=== PATIENT | male | born 1950 | race Caucasian/White ===

== ENCOUNTER → 2022-03-12 10:02 | Outpatient (CLI) | payer MEDICARE, SELFPAY ==
[2022-03-12 11:45] LABS: Add Manual Diff / Slide Review NO; Basophils Absolute Auto 0 /uL (0-100); Basophils Percent Auto 0.6 % (0-2); Eosinophils Absolute Auto 100 /uL (0-450); Eosinophils Percent Auto 2.4 % (2-4); Hematocrit 42.8 % (41-53); Hemoglobin 14.7 g/dL (13.5-17.5); Lymphocytes Absolute Auto 1500 /uL (1100-4500); Lymphocytes Percent Auto 32.9 % (25-40); Mean Corpuscular HGB Conc 34.4 % (30-36); Mean Corpuscular Hemoglobin 34.8 PG (26-34); Mean Corpuscular Volume 101.3 fL (80-100); Monocytes Absolute Auto 800 /uL (0-900); Monocytes Percent Auto 17.5 % (3-14); Neutrophils Absolute Auto 2100 /uL (1500-7000); Neutrophils Percent Auto 46.6 % (50-75); Platelet Count 168 X10^3/uL (150-400); Red Blood Cell Count 4.23 X10^6/uL (4.5-5.9); Red Cell Distribution Width 12.7 % (11.6-14.8); White Blood Cell Count 4.6 X10^3/uL (4.5-11.0)
[2022-03-12 12:07] LABS: Alanine Aminotransferase 21 IU/L (<50); Albumin 4.1 g/dL (3.5-5.0); Albumin Globulin Ratio 0.9 (1.0-2.8); Alkaline Phosphatase 37 U/L (38-126); Aspartate Aminotransferase 30 IU/L (17-59); BUN Creatinine Ratio 17.3 (6-22); Bilirubin Total 0.6 mg/dL (0.2-1.3); Blood Urea Nitrogen 17 mg/dL (9-20); Calcium 8.9 mg/dL (8.4-10.2); Carbon Dioxide 30 mmol/L (22-32); Chloride 104 mmol/L (98-107); Cholesterol 135 mg/dL (140-199); Estimated Glomerular Filt Rate > 60 mL/min (>60); Globulin 4.8 g/dL (1.7-4.1); Glucose 105 mg/dL (80-110); HDL Cholesterol 28 mg/dL (40-60); HEMOLYSIS < 15 (0-50); LDL Cholesterol Calculated 92 mg/dL (<100); Potassium 4.3 mmol/L (3.4-5.1); Sodium 141 mmol/L (137-145); Total Protein 8.9 g/dL (6.3-8.2); Triglycerides 74 mg/dL (35-150)
[2022-03-12 12:28] LABS: Prostate Specific Antigen Scrn 0.592 ng/mL (0.1-4.0)
== END ==
PROVIDERS: PCP Family Medicine; Referring Provider Family Medicine; Visit Provider Family Medicine
DX: E78.5 Hyperlipidemia, unspecified (principal); Z12.5 Encounter for screening for malignant neoplasm of prostate; R35.1 Nocturia
CPT/HCPCS: 36415; 80053; 80061; 85025; G0103

== ENCOUNTER 2022-10-09 18:57 | Emergency (ER) | payer OTHER, SELFPAY ==
[2022-10-09 19:05] VITALS: BP 117/61; PULSE 63; RESP 18; TEMP 36.6; O2SAT 97; BMI 21.9
--- NOTE | 2022-10-09 19:09 | DI.RAD.S_ITS ---
PROCEDURE: XR CHEST 1V INDICATIONS: Shortness of breath TECHNIQUE: One view of the chest was acquired. COMPARISON: None. FINDINGS: Surgical changes and devices: None. Lungs and pleura: Lungs are clear. No pleural effusions or pneumothorax. Mediastinum: Mediastinal contours appear normal. Heart size is normal. Bones and chest wall: No suspicious bony lesions. Overlying soft tissues appear unremarkable. IMPRESSION: No acute cardiopulmonary abnormality. Dictated by: Jaden Escalante M.D. on 10/09/2022 at 20:55 Approved by: Jaden Escalante M.D. on 10/09/2022 at 20:56
[2022-10-09 19:26] LABS: Add Manual Diff / Slide Review NO; Basophils Absolute Auto 0 /uL (0-100); Basophils Percent Auto 0.4 % (0-2); Eosinophils Absolute Auto 100 /uL (0-450); Eosinophils Percent Auto 1.4 % (2-4); Hematocrit 40.8 % (41-53); Hemoglobin 14.1 g/dL (13.5-17.5); Lymphocytes Absolute Auto 2000 /uL (1100-4500); Lymphocytes Percent Auto 32.9 % (25-40); Mean Corpuscular HGB Conc 34.6 % (30-36); Mean Corpuscular Hemoglobin 35.1 PG (26-34); Mean Corpuscular Volume 101.3 fL (80-100); Monocytes Absolute Auto 900 /uL (0-900); Monocytes Percent Auto 14.5 % (3-14); Neutrophils Absolute Auto 3100 /uL (1500-7000); Neutrophils Percent Auto 50.8 % (50-75); Platelet Count 171 X10^3/uL (150-400); Red Blood Cell Count 4.03 X10^6/uL (4.5-5.9); Red Cell Distribution Width 12.7 % (11.6-14.8)
[2022-10-09 19:36] LABS: INR 1.1 (0.9-1.3); Prothrombin Time 12.4 SECONDS (10.1-12.7)
[2022-10-09 19:42] LABS: Alanine Aminotransferase 31 IU/L (<50); Albumin Globulin Ratio 0.8 (1.0-2.8); Alkaline Phosphatase 40 U/L (38-126); Aspartate Aminotransferase 27 IU/L (17-59); Bilirubin Total 0.6 mg/dL (0.2-1.3); Blood Urea Nitrogen 18 mg/dL (9-20); Calcium 9.3 mg/dL (8.4-10.2); Carbon Dioxide 27 mmol/L (22-32); Chloride 107 mmol/L (98-107); Estimated Glomerular Filt Rate > 60 mL/min (>60); Globulin 5.1 g/dL (1.7-4.1); Glucose 109 mg/dL (80-110); HEMOLYSIS < 15 (0-50); Potassium 4.3 mmol/L (3.4-5.1); Sodium 143 mmol/L (137-145); Total Protein 9.1 g/dL (6.3-8.2)
[2022-10-09 19:57] LABS: NT-proBNP (BNP-Adult 18+) 228 pg/mL (<125); Troponin I < 0.012 ng/mL (0.01-0.034)
[2022-10-09 20:03] LABS: COVID-19 CEPHEID 4-PLEX PCR Negative (Negative); Influenza A - CEPHEID Flu A NEGATIVE (NEGATIVE); Influenza B - CEPHEID Flu B NEGATIVE (NEGATIVE); Respiratory Syncytial Virus Negative (Negative)
--- NOTE | 2022-10-09 20:07 | ED_ITS ---
HPI - Chest Pain General Chief Complaint: Chest Pain Stated Complaint: sob, chest pain Time Seen by Provider: 10/09/22 20:04 Source: patient Mode of arrival: Ambulatory Limitations: no limitations History of Present Illness HPI narrative: 72-year-old male nonsmoker with history of PTSD, insomnia, chronic cough and reported prior diagnosis of emphysema presents with a chief complaint of a few weeks of increasing cough and pleuritic-type chest pain. He denies much in the way of runny nose or nasal congestion, he has no sore throat. His cough is dry and hacking and seems to be worsened with deep breath. He denies any exertional dyspnea or orthopnea. He has no lower extremity swelling, redness or pain. He denies any recent trauma, travel or history of blood clot. He has no history of cancer. He denies any sputum production. He is had no fever, chills nor nausea or vomiting. He denies any exercise intolerance. He reports a chest pain that is sharp and stabbing and only with deep breath, cough and with range of motion of his left upper extremity. Related Data Previous Rx's Medication Instructions Recorded trazodone 50 mg tablet 50 mg PO DAILY #90 tabs 02/22/22 paroxetine HCl 10 mg tablet 10 mg PO DAILY #90 tabs 10/08/22 Allergies Allergy/AdvReac Type Severity Reaction Status Date / Time No Known Drug Allergies Allergy Verified 10/09/22 19:05 Review of Systems Review of Systems Narrative: GENERAL: Denies chills, fatigue, malaise, fever, sweats. HEENT: Denies sinus pain, ear pain, sore throat, difficulty swallowing, dizziness. RESPIRATORY: See HPI CARDIOVASCULAR: Denies chest pain, palpitations, orthopnea, edema, GASTROINTESTINAL: Denies nausea, vomiting, abdominal pain, diarrhea, c onstipation, melena. : Denies dysuria, frequency, incontinence, hematuria, urinary retention. MUSCULOSKELETAL: denies weakness, joint pain, or bony pain SKIN: Denies rash, skin lesions, or other NEUROLOGIC: Denies weakness, headache, numbness, change in speech, confusion, seizures, incoordination. PSYCHIATRIC: No concerning psychosocial issues. 12 point review of systems is negative except for those stated above Patient History Medical History Anxiety Cataracts, bilateral Chronic back pain Chronic cough Depression GERD (gastroesophageal reflux disease) Hearing loss History of hyperlipidemia Insomnia Irritable bowel syndrome Left inguinal hernia Low HDL (under 40) Measles Migraines Mumps Nocturia Pelvic somatic dysfunction PTSD (post-traumatic stress disorder) Sacral region somatic dysfunction Shoulder pain Sleep apnea Tinnitus Wears glasses Surgical History Anesthesia History of appendectomy (~2003) History of carpal tunnel release (~2013) History of knee surgery (~1974) History of lumbar spinal fusion (~1967) History of shoulder surgery (~2017) Knee cap dislocation (~1983) Trigger thumb (~2017) Family History Mother Sepsis Grandfather History of heart disease Social History Smoking Status: Unknown if ever smoked Smoking Status: Unknown if ever smoked alcohol intake frequency: holidays/special occasions only Substance Use Type: does not use Exam Narrative Exam Narrative: GENERAL: [72] year old patient appears stated age. Well-developed patient, in mild distress. Very hard of hearing HEAD: Atraumatic. Normocephalic. EYES: Pupils equal round and reactive. Extraocular motions intact. No scleral icterus. No injection or drainage. ENT: Nose without bleeding, purulent drainage. Throat without erythema, tonsillar hypertrophy or exudate. Airway patent. NECK: Trachea midline. Non tender CARDIOVASCULAR: Regular rate and rhythm without murmurs, gallops, or rubs. RESPIRATORY: Minimally coarse breath sounds, deep breath illicits dry hacking cough, no rales or rhonchi GASTROINTESTINAL: Abdomen soft, non-tender, nondistended. EXTREMITIES: No edema or joint tenderness. BACK: Nontender without deformity or crepitance. No flank tenderness. NEURO: AOx3. SKIN: No rash or erythema of visible areas Initial Vital Signs Initial Vital Signs: Vital Signs Temperature 97.9 F 10/09/22 19:05 Pulse Rate 63 10/09/22 19:05 Respiratory Rate 18 10/09/22 19:05 Blood Pressure 117/61 10/09/22 19:05 Pulse Oximetry 97 10/09/22 19:05 Oxygen Delivery Method 10/09/22 19:05 Course Orders Ordered: ED Orders 10/09/22 19:09 XR chest 1V Stat Measure peak expiratory flow ONCE RT Consult Eval and Treat NOW 10/09/22 19:13 Complete Blood Count AUTO DIFF Stat Comprehensive Metabolic Panel Stat Covid-19 + FLU A/B + RSV - PCR Stat D Dimer Stat Lactate (Lactic Acid) Stat NT-proBNP (BNP-Adult 18+) Stat Procalcitonin Stat Prothrombin Time INR Stat Troponin I Stat Discontinued Medications Albuterol (Albuterol Hfa Prepack) 1 box MISC SEEINSTR ONE Stop: 10/09/22 21:56 Last Admin: 10/09/22 21:58 Dose: 1 box Documented By: JITENDRA Albuterol/Ipratropium (Albuterol/Ipratropium 3 Ml Ampul) 3 ml INH NOW ONE Stop: 10/09/22 21:46 Last Admin: 10/09/22 21:49 Dose: 3 ml Documented By: JITENDRA Vital Signs Vital signs: Vital Signs - 8 hr 10/09/22 22:23 Pulse Rate 63 Respiratory Rate 14 Blood Pressure 114/65 Pulse Oximetry 98 Oxygen Delivery Method Room Air MDM - Chest Pain Lab Data Result diagrams: 10/09/22 19:13 10/09/22 19:13 Labs: Lab Results 10/09/22 10/09/22 10/09/22 Range/Units 19:13 19:13 19:13 WBC 6.0 (4.5-11.0) X10^3/uL RBC 4.03 L (4.5-5.9) X10^6/uL Hgb 14.1 (13.5-17.5) g/dL Hct 40.8 L (41-53) % MCV 101.3 H (80-100) fL MCH 35.1 H (26-34) PG MCHC 34.6 (30-36) % RDW 12.7 (11.6-14.8) % Plt Count 171 (150-400) X10^3/uL Neut % (Auto) 50.8 (50-75) % Lymph % (Auto) 32.9 (25-40) % [place] % (Auto) 14.5 H (3-14) % Eos % (Auto) 1.4 L (2-4) % Baso % (Auto) 0.4 (0-2) % Neut # (Auto) 3100 (1203-0985) /uL Lymph # (Auto) 2000 (4043-5660) /uL [place] # (Auto) 900 (0-900) /uL Eos # (Auto) 100 (0-450) /uL Baso # (Auto) 0 (0-100) /uL PT 12.4 (10.1-12.7) SECONDS INR 1.1 (0.9-1.3) D-Dimer (<500) ng/ml Sodium (137-145) mmol/L Potassium (3.4-5.1) mmol/L Chloride (98-107) mmol/L Carbon Dioxide (22-32) mmol/L BUN (9-20) mg/dL Creatinine (0.66-1.25) mg/dL Estimated GFR (>60) mL/min BUN/Creatinine Ratio (6-22) Glucose (80-110) mg/dL Lactate (0.7-2.1) mmol/L Calcium (8.4-10.2) mg/dL Total Bilirubin (0.2-1.3) mg/dL AST (17-59) IU/L ALT (<50) IU/L Alkaline Phosphatase (38-126) U/L Troponin I (0.01-0.034) ng/mL NT-Pro-B Natriuret Pep (<125) pg/mL Total Protein (6.3-8.2) g/dL Albumin (3.5-5.0) g/dL Globulin (1.7-4.1) g/dL Albumin/Globulin Ratio (1.0-2.8) Procalcitonin (<0.5) ng/mL SARS-CoV-2 (PCR) Negative (Negative) Influenza A (RT-PCR) Flu a negative (NEGATIVE) Influenza B (RT-PCR) Flu b negative (NEGATIVE) RSV (PCR) Negative (Negative) 10/09/22 10/09/22 10/09/22 Range/Units 19:13 19:13 19:13 WBC (4.5-11.0) X10^3/uL RBC (4.5-5.9) X10^6/uL Hgb (13.5-17.5) g/dL Hct (41-53) % MCV (80-100) fL MCH (26-34) PG MCHC (30-36) % RDW (11.6-14.8) % Plt Count (150-400) X10^3/uL Neut % (Auto) (50-75) % Lymph % (Auto) (25-40) % [place] % (Auto) (3-14) % Eos % (Auto) (2-4) % Baso % (Auto) (0-2) % Neut # (Auto) (7596-6335) /uL Lymph # (Auto) (8888-3495) /uL [place] # (Auto) (0-900) /uL Eos # (Auto) (0-450) /uL Baso # (Auto) (0-100) /uL PT (10.1-12.7) SECONDS INR (0.9-1.3) D-Dimer 270 (<500) ng/ml Sodium 143 (137-145) mmol/L Potassium 4.3 (3.4-5.1) mmol/L Chloride 107 (98-107) mmol/L Carbon Dioxide 27 (22-32) mmol/L BUN 18 (9-20) mg/dL Creatinine 0.90 (0.66-1.25) mg/dL Estimated GFR > 60 (>60) mL/min BUN/Creatinine Ratio 20.0 (6-22) Glucose 109 (80-110) mg/dL Lactate 1.0 (0.7-2.1) mmol/L Calcium 9.3 (8.4-10.2) mg/dL Total Bilirubin 0.6 (0.2-1.3) mg/dL AST 27 (17-59) IU/L ALT 31 (<50) IU/L Alkaline Phosphatase 40 (38-126) U/L Troponin I < 0.012 (0.01-0.034) ng/mL NT-Pro-B Natriuret Pep 228 H (<125) pg/mL Total Protein 9.1 H (6.3-8.2) g/dL Albumin 4.0 (3.5-5.0) g/dL Globulin 5.1 H (1.7-4.1) g/dL Albumin/Globulin Ratio 0.8 L (1.0-2.8) Procalcitonin (<0.5) ng/mL SARS-CoV-2 (PCR) (Negative) Influenza A (RT-PCR) (NEGATIVE) Influenza B (RT-PCR) (NEGATIVE) RSV (PCR) (Negative) 10/09/22 Range/Units 19:13 WBC (4.5-11.0) X10^3/uL RBC (4.5-5.9) X10^6/uL Hgb (13.5-17.5) g/dL Hct (41-53) % MCV (80-100) fL MCH (26-34) PG MCHC (30-36) % RDW (11.6-14.8) % Plt Count (150-400) X10^3/uL Neut % (Auto) (50-75) % Lymph % (Auto) (25-40) % [place] % (Auto) (3-14) % Eos % (Auto) (2-4) % Baso % (Auto) (0-2) % Neut # (Auto) (4630-2772) /uL Lymph # (Auto) (4293-2909) /uL [place] # (Auto) (0-900) /uL Eos # (Auto) (0-450) /uL Baso # (Auto) (0-100) /uL PT (10.1-12.7) SECONDS INR (0.9-1.3) D-Dimer (<500) ng/ml Sodium (137-145) mmol/L Potassium (3.4-5.1) mmol/L Chloride (98-107) mmol/L Carbon Dioxide (22-32) mmol/L BUN (9-20) mg/dL Creatinine (0.66-1.25) mg/dL Estimated GFR (>60) mL/min BUN/Creatinine Ratio (6-22) Glucose (80-110) mg/dL Lactate (0.7-2.1) mmol/L Calcium (8.4-10.2) mg/dL Total Bilirubin (0.2-1.3) mg/dL AST (17-59) IU/L ALT (<50) IU/L Alkaline Phosphatase (38-126) U/L Troponin I (0.01-0.034) ng/mL NT-Pro-B Natriuret Pep (<125) pg/mL Total Protein (6.3-8.2) g/dL Albumin (3.5-5.0) g/dL Globulin (1.7-4.1) g/dL Albumin/Globulin Ratio (1.0-2.8) Procalcitonin 0.04 (<0.5) ng/mL SARS-CoV-2 (PCR) (Negative) Influenza A (RT-PCR) (NEGATIVE) Influenza B (RT-PCR) (NEGATIVE) RSV (PCR) (Negative) Imaging Data Chest x-ray: Radiologist's Impression: [address] [address] XRay Report Signed Patient: Kristian Mckeon MR#: [id number] : 1950 Acct:[id number] Age/Sex: 72 / M Date of Service: 10/09/22 Loc: ED Accession Number: [id number] ?? Procedure: XR chest 1V Ordering Provider: Reddy Martines D.O. PROCEDURE:? XR CHEST 1V ? INDICATIONS:? Shortness of breath ? TECHNIQUE:? One view of the chest was acquired.? ? COMPARISON:? None. ? FINDINGS:? ? Surgical changes and devices:? None.? ? Lungs and pleura:? Lungs are clear.? No pleural effusions or pneumothorax.? ? Mediastinum:? Mediastinal contours appear normal.? Heart size is normal.? ? Bones and chest wall:? No suspicious bony lesions.? Overlying soft tissues ap pear unremarkable.? ? IMPRESSION:? No acute cardiopulmonary abnormality. ? ? ? Dictated by: Jaden Escalante M.D. on 10/09/2022 at 20:55 ? ? Approved by: Jaden Escalante M.D. on 10/09/2022 at 20:56 ? ECG Data Interpretation: [1913] EKG is normal sinus rhythm rate [ 63] and free of any signs of ischemia or ectopy. No ST segmental elevation or depression. No T wave inversions MDM Narrative Medical decision making narrative: [72-year-old male nonsmoker with many weeks of a dry and hacking cough worse with deep breath] Multiple etiologies for patient's symptoms considered including, but not limited to: [ COVID, flu, RSV, pneumonia, bronchospasm versus other] Prior Charts reviewed: None available Labs reviewed and interpreted by myself: no leukocytosis, negative troponin Imaging reviewed: CXR without acute findings patient with many weeks dry hacking cough, worse with deep breath in the absence of fever or chills, no exertional symptoms, he does have a burning chest pain with cough but is not associated with cardiac equivalents Patient's symptoms improved over duration of stay with above-stated therapies. Findings and discharge diagnosis discussed with patient/family followed by verbalization of understanding Return precautions discussed with patient/family whom verbalize understanding of diagnosis and plan Discharge Plan Departure Patient Disposition: Home Clinical Impression: Cough, Acute bronchospasm Instructions: Cough Activity Restrictions/Additional Instructions: *You have been diagnosed with [cough and bronchospasm. As we discussed your history and physical exam are reassuring. Your labs and chest x-ray would suggest against heart attack, heart failure or pneumonia. The respiratory swabs are negative for COVID, flu and RSV.] *What to do: *Please continue to take your regular medications as directed. [ ] New medication prescriptions sent to your pharmacy: [ ] [ ] New medication written as a paper prescription [ ] No new medications given *Please follow up with your primary care provider in 2-3 days, call for an appointment. Let them know you were seen in the Emergency Department and that we ask that you be seen in follow up. We will electronically transmit a record of today's note if your PCP is in our system *If you do not have a primary care provider please contact the [facility] Resource line at [phone]. They will ask some questions about your medical history and help get you set up with a doctor in the community. *Return to Emergency Department if you should have any new, worsening or concerning symptoms, such as [fever greater than 101 F, shaking chills, worsening pain, persistent vomiting or other bothersome symptoms] Prescriptions: No Action trazodone 50 mg tablet 50 mg PO DAILY Qty: 90 1RF paroxetine HCl 10 mg tablet 10 mg PO DAILY Qty: 90 3RF Referrals: Parviz Chicas DO [Primary Care Provider] - Stand Alone Forms: Patient Portal/API
[2022-10-09 20:29] LABS: D Dimer 270 ng/ml (<500)
[2022-10-09 20:49] LABS: Procalcitonin 0.04 ng/mL (<0.5)
[2022-10-09] MEDS: ALBUTEROL/IPRATROPIUM 3 ML AMPUL INH (21:49)
[2022-10-09] MEDS: ALBUTEROL HFA PREPACK 1 BOX MISC (21:58)
[2022-10-09 22:23] VITALS: BP 114/65; PULSE 63; RESP 14; O2SAT 98
== END 2022-10-09 22:24 | disposition home or self-care (01) ==
PROVIDERS: Emergency Provider Emergency Medicine; PCP Family Medicine
DX: J98.01 Acute bronchospasm (principal); R05.9 Cough, unspecified; R07.89 Other chest pain; Z20.822 Contact with and (suspected) exposure to COVID-19
CPT/HCPCS: 0241U; 36415; 71045; 80053; 83605; 83880; 84145; 84484; 85025; 85379; 85610; 93005; 93010; 94640; 99283; 99284

== ENCOUNTER → 2023-07-03 15:32 | Outpatient (CLI) | payer OTHER, SELFPAY ==
--- NOTE | 2023-07-03 15:57 | DI.RAD.S_ITS ---
PROCEDURE: XR HIP W PEL IF DONE SHAYE MIN 4V INDICATIONS: bilateral hip pain x 1 year TECHNIQUE: AP pelvis with lateral view(s) of the both hip(s). COMPARISON: None. FINDINGS: Bones: No fractures or dislocations. Moderate bilateral hip DJD. Pelvic ring appears intact. No suspicious bony lesions. Soft tissues: The visualized bowel gas pattern is normal. No suspicious soft tissue calcifications. IMPRESSION: Moderate bilateral hip DJD. Dictated by: Jaden Escalante M.D. on 07/03/2023 at 19:28 Approved by: Jaden Escalante M.D. on 07/03/2023 at 19:29
[2023-07-03 16:08] LABS: Add Manual Diff / Slide Review NO; Basophils Absolute Auto 0 /uL (0-100); Basophils Percent Auto 0.4 % (0-2); Eosinophils Absolute Auto 100 /uL (0-450); Eosinophils Percent Auto 1.4 % (2-4); Hematocrit 38.6 % (41-53); Hemoglobin 13.1 g/dL (13.5-17.5); Lymphocytes Absolute Auto 1800 /uL (1100-4500); Lymphocytes Percent Auto 36.4 % (25-40); Mean Corpuscular HGB Conc 33.9 % (30-36); Mean Corpuscular Hemoglobin 33.5 PG (26-34); Mean Corpuscular Volume 98.9 fL (80-100); Monocytes Absolute Auto 700 /uL (0-900); Monocytes Percent Auto 15.1 % (3-14); Neutrophils Absolute Auto 2300 /uL (1500-7000); Neutrophils Percent Auto 46.7 % (50-75); Platelet Count 165 X10^3/uL (150-400); Red Cell Distribution Width 14.2 % (11.6-14.8); White Blood Cell Count 4.9 X10^3/uL (4.5-11.0)
[2023-07-03 16:31] LABS: Hemoglobin A1C% w Est Avg Glu 5.2 % (4.0-6.0)
[2023-07-03 16:33] LABS: Alanine Aminotransferase 24 IU/L (<50); Albumin 3.9 g/dL (3.5-5.0); Albumin Globulin Ratio 0.8 (1.0-2.8); Alkaline Phosphatase 42 U/L (38-126); Aspartate Aminotransferase 27 IU/L (17-59); Bilirubin Total 0.4 mg/dL (0.2-1.3); Blood Urea Nitrogen 16 mg/dL (9-20); C-Reactive Protein Quant < 0.5 mg/dL (<1.0); Calcium 9.9 mg/dL (8.4-10.2); Carbon Dioxide 29 mmol/L (22-32); Chloride 106 mmol/L (98-107); Estimated Glomerular Filt Rate > 60 mL/min (>60); Globulin 4.9 g/dL (1.7-4.1); Glucose 86 mg/dL (80-110); HEMOLYSIS < 15 (0-50); Potassium 3.8 mmol/L (3.4-5.1); Sodium 141 mmol/L (137-145); Total Protein 8.8 g/dL (6.3-8.2)
[2023-07-03 16:58] LABS: Prostate Specific Antigen Scrn 0.488 ng/mL (0.1-4.0)
[2023-07-03 17:18] LABS: Vitamin B12 333 pg/mL (239-931)
[2023-07-03 18:24] LABS: TSH w/ Reflex to FT4 1.22 uIU/mL (0.47-4.68)
[2023-07-03 21:33] LABS: Erythrocyte Sedimentation Rate 1 MM/HR (0-15)
== END ==
PROVIDERS: PCP Family Medicine; Referring Provider Physician Assistant; Visit Provider Physician Assistant
DX: G62.9 Polyneuropathy, unspecified (principal); Z12.5 Encounter for screening for malignant neoplasm of prostate; G47.00 Insomnia, unspecified; M25.551 Pain in right hip; M25.552 Pain in left hip; L65.9 Nonscarring hair loss, unspecified
CPT/HCPCS: 73522; 80053; 82607; 83036; 84443; 85025; 85651; 86140; G0103

== ENCOUNTER → 2023-08-26 10:00 | Outpatient (CLI) | payer OTHER, SELFPAY ==
[2023-08-26 11:00] LABS: Cholesterol 141 mg/dL (140-199); HDL Cholesterol 26 mg/dL (40-60); LDL Cholesterol Calculated 92 mg/dL (<100); Triglycerides 117 mg/dL (35-150)
[2023-08-30 17:53] LABS: Percent Free Testosterone 2.21 % (1.50-4.20); Testosterone Free 15.23 ng/dL (5.00-21.00); Testosterone Total 689.2 ng/dL (264.0-916.0)
== END ==
PROVIDERS: Family Provider Family Medicine; PCP Family Medicine; Referring Provider Family Medicine; Visit Provider Family Medicine
DX: E78.6 Lipoprotein deficiency (principal); E78.1 Pure hyperglyceridemia; N52.9 Male erectile dysfunction, unspecified
CPT/HCPCS: 36415; 80061; 84402; 84403

== ENCOUNTER → 2023-10-23 11:29 | Outpatient (CLI) | payer OTHER, SELFPAY ==
[2023-10-23 12:57] LABS: Add Manual Diff / Slide Review NO; Basophils Absolute Auto 0 /uL (0-100); Basophils Percent Auto 0.5 % (0-2); Eosinophils Absolute Auto 200 /uL (0-450); Eosinophils Percent Auto 4.9 % (2-4); Hematocrit 39.2 % (41-53); Hemoglobin 13.6 g/dL (13.5-17.5); Lymphocytes Absolute Auto 1400 /uL (1100-4500); Lymphocytes Percent Auto 28.9 % (25-40); Mean Corpuscular HGB Conc 34.6 % (30-36); Mean Corpuscular Hemoglobin 35.2 PG (26-34); Mean Corpuscular Volume 101.7 fL (80-100); Monocytes Absolute Auto 900 /uL (0-900); Monocytes Percent Auto 17.6 % (3-14); Neutrophils Absolute Auto 2400 /uL (1500-7000); Neutrophils Percent Auto 48.1 % (50-75); Platelet Count 200 X10^3/uL (150-400); Red Blood Cell Count 3.85 X10^6/uL (4.5-5.9); Red Cell Distribution Width 13.6 % (11.6-14.8); White Blood Cell Count 4.9 X10^3/uL (4.5-11.0)
[2023-10-23 14:40] LABS: Vitamin B12 697 pg/mL (239-931)
== END ==
PROVIDERS: Family Provider Family Medicine; PCP Family Medicine; Referring Provider Family Medicine; Visit Provider Family Medicine
DX: E53.8 Deficiency of other specified B group vitamins (principal)
CPT/HCPCS: 36415; 82607; 85025

== ENCOUNTER → 2023-11-21 11:02 | Outpatient (CLI) | payer OTHER, SELFPAY ==
[2023-11-22 13:36] LABS: Fecal Immunochemical Test Negative (Negative)
== END ==
PROVIDERS: Family Provider Family Medicine; PCP Family Medicine; Referring Provider Family Medicine; Visit Provider Family Medicine
DX: Z12.11 Encounter for screening for malignant neoplasm of colon (principal)
CPT/HCPCS: 82274

== ENCOUNTER → 2024-05-01 14:15 | Outpatient (CLI) | payer MEDICARE, SELFPAY ==
[2024-05-01 14:46] LABS: Add Manual Diff / Slide Review NO; Basophils Absolute Auto 0 /uL (0-100); Basophils Percent Auto 0.5 % (0-2); Eosinophils Absolute Auto 100 /uL (0-450); Eosinophils Percent Auto 1.9 % (2-4); Hematocrit 40.4 % (41-53); Lymphocytes Absolute Auto 1800 /uL (1100-4500); Lymphocytes Percent Auto 32.7 % (25-40); Mean Corpuscular HGB Conc 34.7 % (30-36); Mean Corpuscular Hemoglobin 35.5 PG (26-34); Mean Corpuscular Volume 102.3 fL (80-100); Monocytes Absolute Auto 800 /uL (0-900); Neutrophils Absolute Auto 2700 /uL (1500-7000); Neutrophils Percent Auto 49.9 % (50-75); Platelet Count 190 X10^3/uL (150-400); Red Blood Cell Count 3.95 X10^6/uL (4.5-5.9); White Blood Cell Count 5.4 X10^3/uL (4.5-11.0)
[2024-05-01 15:09] LABS: HEMOLYSIS < 15 (0-50); Iron 115 ug/dL (49-181)
[2024-05-01 15:21] LABS: Percent Iron Saturation 39 % (20-50); Total Iron Binding Capacity 292 ug/dL (261-462); Transferrin 213 mg/dL (206-381)
[2024-05-01 16:15] LABS: Folate > 20.0 ng/mL (2.76-20.0); Vitamin B12 675 pg/mL (239-931)
== END ==
PROVIDERS: Family Provider Family Medicine; PCP Family Medicine; Referring Provider Family Medicine; Visit Provider Family Medicine
DX: Z00.00 Encounter for general adult medical examination without abnormal findings (principal); R71.8 Other abnormality of red blood cells; Z13.21 Encounter for screening for nutritional disorder
CPT/HCPCS: 36415; 82607; 82746; 83540; 83550; 85025

== ENCOUNTER 2024-06-10 09:45 | Outpatient (RCR) | payer MEDICARE, OTHER, SELFPAY ==
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
--- NOTE | 2023-08-27 16:00 | PT.OPPOC ---
Physical, Occupational & Speech Therapy At [facility] Current Diagnoses Bilateral primary osteoarthritis of hip (08/27/23) Visit Care Team Role Provider Type Parviz Chicas DO Family Provider Physician Primary Care Provider Specialty: Family Practice Address: [address] [place] [address], [address] Email: Kindra Guo PA-C Attending Provider Advanced Stone Product Fabricator Referring Provider Specialty: Medical Wound Care Address: [address] [place] [address], [address] Email: [email or web address] Plan Of Care PT-OP-T Assessment and Plan Start: 08/26/23 10:05 Freq: Status: Active Protocol: Document 08/27/23 13:02 SAK (Rec: 08/27/23 13:54 SAK [id number]) Physical Therapy Assessment Rehab Potential Rehabilitation Potential Good Evaluation Complexity Number of Personal Factors/Comorbidities 1-2 Number of Body Systems Impaired 3 Clinical Presentation at Evaluation Evolving Impairments Impairments Activity Tolerance,Pain,ROM, Strength Goals Two Impairment muscle imbalances throughout hips Impairment muscle tightness and weakness throughout hips vicente Short Term Goal (STG) Patient will be instructed in HEP to address ROM and strength deficits vicente hips STG Duration 09/13/23 Calender Let Off Helper Goal (LTG) Patient to demonstrate vicente hip ROM WNL and strength 5/5 all muscle groups to improve bilateral hip function. LTG Duration 11/14/22 One Impairment poor sleep due to vicente hip pain Impairment unable to sleep greater than 45 min at a time before pain wakes him Short Term Goal (STG) Patient able to sleep for at least 3 hours without being woken due to pain STG Duration 10/14/22 Mcfp Goal (LTG) Patient will be able to return to normal sleeping pattern without being woken due to pain in hips LTG Duration 11/14/22 Assessment Summary Assessment Patient presents to PT with function-limiting pain bilateral hips of unknown origin, with patient denying fall or other injury. He does have a history of left knee surgeries. Objective evaluation reveals mod tightness hamstrings vicente, quads vicente, IT bands vicente, weakness vicente hip abductors and external rotators. In addition patient has excess bilateral foot pronation evident in standing and he was encouraged to consider obtaining orthotics to improve LE alignment. Feel patient would benefit from PT to improve ROM and strength bilateral hips to decrease his pain and improve his function , espescially his ability to sleep. Patient will be receiving bilateral hip injections 09/04/23. POC was discussed and patient was in agreement. HEP patient currently does for core was reviewed and exercises for hip ROM and strengthening were added with written handout issued. Physical Therapy Plan Frequency and Duration Frequency of Treatment 2x/Week Duration of treatment (weeks) 12 Plan of Care Start Date 08/27/23 Plan of Care End Date 11/28/23 Therapeutic Interventions Therapeutic Interventions Home Exercise Program,Manual Therapy,Neuromuscular Re- education,Patient/Caregiver Education,Self-Care/Home Management,Soft Tissue Mobilization,Taping, Therapeutic Activities, Therapeutic Exercises Modalities Cold Pack/Ice Massage,Electric Stimulation,Hot Packs, Infrared Therapy,Traction- Mechanical,Ultrasound Next Visit Focus/Plan Next Note Type Treatment Note Next Visit Plan Review HEP, add piriformis stretching, clamshell. STM bilateral TFL and IT bands with patient instruction in self-massage with use of rolling pin, ball. Plan of Care Dates Plan of Care Start Date 08/27/23 Plan of Care End Date 11/28/23 Electronically Signed by: Jovita Hodges, PT 08/28/23 0834 If you are in agreement with this Plan of Care, please return a signed and dated copy. I have reviewed this Plan of Care and certify that the skilled therapy services above are required to meet the patient?s needs. Physician Signature Date Printed Name and Credentials Clinical Instructor Signature Printed Name and Credentials
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
--- NOTE | 2023-09-15 14:23 | PT-OP ANOTE ---
Next appt 09/19: assess ability to attend 2 or 1 tx weekly, copay $20.
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
--- NOTE | 2023-11-27 16:27 | PT.OPPOC ---
Physical, Occupational & Speech Therapy At [facility] Current Diagnoses Bilateral primary osteoarthritis of hip (11/27/23) Visit Care Team Role Provider Type Parviz Chicas DO Family Provider Physician Primary Care Provider Specialty: Family Practice Address: [address] [place] [address], [address] Email: Kindra Guo PA-C Attending Provider Advanced Microsoft Crm Developer Referring Provider Specialty: Medical Wound Care Address: [address] [place] [address], [id number] Email: [email or web address] Plan Of Care PT-OP-T Assessment and Plan Start: 08/26/23 10:05 Freq: Status: Active Protocol: Document 11/27/23 13:48 [facility] (Rec: 11/27/23 14:32 [facility] [id number]) Physical Therapy Assessment Goals Two Impairment muscle imbalances throughout hips Impairment muscle tightness and weakness throughout hips vicente Short Term Goal (STG) Patient will be instructed in HEP to address ROM and strength deficits vicente hips 10/24/23: goal met STG Duration goal met Jail Goal (LTG) Patient to demonstrate vicente hip ROM WNL and strength 5/5 all muscle groups to improve bilateral hip function. 11/14/23: good goal progress, not fully achieved LTG Duration 01/26/24 One Impairment poor sleep due to vicente hip pain Impairment unable to sleep greater than 45 min at a time before pain wakes him Short Term Goal (STG) Patient able to sleep for at least 3 hours without being woken due to pain 10/24/23: some goal progress 11/14/23: goal met STG Duration 12/26/23 Plumber'S Assistant Goal (LTG) Patient will be able to return to normal sleeping pattern without being woken due to pain in hips LTG Duration 01/26/24 Progress Towards Goals Progress Towards Goals Progressing Toward Goals Progress Comments progress impacted by prior left knee injury as well as family stressor Assessment Summary Assessment Patient overall has been reporting decrease in hip pain withPT. Today he comes to PT very fatigued and distracted due to family stressor, reporting some increase in pain in hips as well as left knee, decreased compliance to HEP due to family issue. As he has been making progress but not fully reached his PT goals recommend continued skilled PT to further decrease his pain, improve his mobility and strength, and help him meet all his PT goals and return to more active lifestyle. Discussed POC and patient is in agreement. Physical Therapy Plan Frequency and Duration Frequency of Treatment 2x/Week Duration of treatment (weeks) 12 Plan of Care Start Date 11/27/23 Plan of Care End Date 01/26/24 Therapeutic Interventions Therapeutic Interventions Home Exercise Program,Manual Therapy,Neuromuscular Re- education,Patient/Caregiver Education,Self-Care/Home Management,Soft Tissue Mobilization,Taping, Therapeutic Activities, Therapeutic Exercises Modalities Cold Pack/Ice Massage,Electric Stimulation,Hot Packs, Infrared Therapy,Traction- Mechanical,Ultrasound Next Visit Focus/Plan Next Note Type Treatment Note Next Visit Plan Continue PT with ther ex, patient education, manual therapy, and modalities per POC. Progress HEP as indicated; patient to bring in all HEP handouts for review and modification and correction as needed. Plan of Care Dates Plan of Care Start Date 11/27/23 Plan of Care End Date 01/26/24 Electronically Signed by: Jovita Hodges, PT 11/27/23 [id number] If you are in agreement with this Plan of Care, please return a signed and dated copy. I have reviewed this Plan of Care and certify that the skilled therapy services above are required to meet the patient?s needs. Physician Signature Date Printed Name and Credentials Clinical Instructor Signature Printed Name and Credentials
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
--- NOTE | 2024-01-22 16:33 | PT.OPPOC ---
Physical, Occupational & Speech Therapy At [facility] Current Diagnoses Bilateral primary osteoarthritis of hip (01/22/24) Visit Care Team Role Provider Type Parviz Chicas DO Family Provider Physician Primary Care Provider Specialty: Family Practice Address: [address] [place] [address], [address] Email: Kindra Guo PA-C Attending Provider Advanced Underwriting Consultant Referring Provider Specialty: Medical Wound Care Address: [address] [place] [address], [address] Email: [email or web address] Plan Of Care PT-OP-T Assessment and Plan Start: 08/26/23 10:05 Freq: Status: Active Protocol: Document 01/22/24 12:59 SAK (Rec: 01/22/24 13:52 SAK [id number]) Physical Therapy Assessment Goals Two Impairment muscle imbalances throughout hips Impairment muscle tightness and weakness throughout hips vicente Short Term Goal (STG) Patient will be instructed in HEP to address ROM and strength deficits vicente hips 10/24/23: goal met STG Duration goal met Mcc Goal (LTG) Patient to demonstrate vicente hip ROM WNL and strength 5/5 all muscle groups to improve bilateral hip function. 11/14/23: good goal progress, not fully achieved 12/18/23: met except hip extension 4-/5 with poor functional gluteal activation. 01/22/24: hip extension remains 4-/5 LTG Duration 01/26/24 One Impairment poor sleep due to vicente hip pain Impairment unable to sleep greater than 45 min at a time before pain wakes him Short Term Goal (STG) Patient able to sleep for at least 3 hours without being woken due to pain 10/24/23: some goal progress 11/14/23: goal met 12/18/23: patient reporting only 2 hr nolvia on left side, 1 hr nolvia right side. PT reviewed need for long pillow support top leg, need inc cusion in bed. STG Duration 12/26/23 Chief Transfer And Pumphouse Operator Goal (LTG) Patient will be able to return to normal sleeping pattern without being woken due to pain in hips LTG Duration 01/26/24 Assessment Summary Assessment Patient presents to PT reporting some decrease in pain s/p injections bilateral hips, issued knee brace to assist with patellar tracking left knee with some improvement. Requests assistance with exercises recommended by orthopedist ( hasn't done because didn't understand) as well as use of foam roller on IT band; after instruction demonstrated good understanding and plans to purchase 36 foam roller. Recommend follow up visits to assure compliance and correct performance; 2x in the next 8 weeks. Discussed POC and patient in agreement. Physical Therapy Plan Frequency and Duration Frequency of Treatment 2 Duration of treatment (weeks) 8 Plan of Care Start Date 01/22/24 Plan of Care End Date 03/23/24 Therapeutic Interventions Therapeutic Interventions Home Exercise Program,Manual Therapy,Neuromuscular Re- education,Patient/Caregiver Education,Self-Care/Home Management,Soft Tissue Mobilization,Taping, Therapeutic Activities, Therapeutic Exercises Modalities Cold Pack/Ice Massage,Electric Stimulation,Hot Packs, Infrared Therapy,Traction- Mechanical,Ultrasound Next Visit Focus/Plan Next Note Type Treatment Note Next Visit Plan Trial single leg lift, work further on functional glueal activation. Review HEP , progress as indicated. Plan of Care Dates Plan of Care Start Date 01/22/24 Plan of Care End Date 03/23/24 Electronically Signed by: Jovita Hodges, PT 01/22/24 7111 If you are in agreement with this Plan of Care, please return a signed and dated copy. I have reviewed this Plan of Care and certify that the skilled therapy services above are required to meet the patient?s needs. Physician Signature Date Printed Name and Credentials Clinical Instructor Signature Printed Name and Credentials
--- NOTE | 2024-02-26 16:25 | PT.OTN ---
Current Diagnoses Bilateral primary osteoarthritis of hip (02/26/24) Physical Therapy Treatment Note PT-OP-A Visit Information Start: 08/26/23 10:05 Freq: Status: Active Protocol: Document 02/26/24 15:17 [facility] (Rec: 02/26/24 16:[address] [facility] [id number]) Out-Patient Physical Therapy Visit Information Visit Information Visit Type Treatment Note Visit Start Time 15:18 Visit Number 12 Precautions Precautions spinal fusion 1967, left knee MCL repair 1974, left patellar dislocation release 1983, right shoulder labral repair 2013 PT-OP-B Current Condition Start: 08/26/23 10:05 Freq: Status: Active Protocol: Document 02/26/24 15:17 [facility]AK (Rec: 02/26/24 16:[address] [facility] [id number]) Current Condition History of Current Condition Onset Date 2 years Current Complaints bilateral hip pain History of Current Condition about 2 year history bilateral hip pain, has been murder the past 6 months. Pain worst when in bed laying on side; can only tolerate 45 min laying on side. Has to get up for about 1 hour. Had three medical appointments cancelled with physician, finally got in to get prescription for PT. Can't sleep on his back due to acid reflux and sleep apnea. Does put a pillow in between knees at night. Has a mattress topper. Getting hip injections September 04. History spinal fusion. Does core exercises on regular basis. Went to PT 10 years ago, was given core exercises, hasn't ever done hip exercises. Prior Treatments and Tests x-ray: mod OA vicente hips Prior 2 surgeries left knee Future Testing and Treatments Planned none planned. PT-OP-C Subjective Start: 08/26/23 10:05 Freq: Status: Active Protocol: Document 02/26/24 15:17 [facility]AK (Rec: 02/26/24 16:[address] [facility] [id number]) OP-PT Subjective Patient Comments Patient Comments Pain started getting worse again about 1 month ago, maybe Cortisone shots wearing off. Also started doing gardening. Working on pillows for better support. Right side pain worse than left, although since about 1 month ago had sharp stabbing pain left outer hip and has been worse. Doing HEP. Frustrated by continued pain PT-OP-F Manual Assessment Start: 08/26/23 10:05 Freq: Status: Active Protocol: Document 08/27/23 13:02 [facility]AK (Rec: 08/28/23 08:[address] [facility] [id number]) Manual Assessments Soft Tissue Assessment Soft Tissue Mobility Assessment palpable tightness vicente TFL, piriformis right greater than left PT-OP-H Neuro Start: 08/26/23 10:05 Freq: Status: Active Protocol: Document 08/27/23 13:[address] [facility] (Rec: 08/28/23 08:[address] [facility] [id number]) Sensation Evaluation Gross Sensation Gross Sensation WNL Deep Tendon Reflex & Clonus Assessment Deep Tendon Reflex Bilateral Patellar Deep Tendon Reflex 2+ Normal PT-OP-J Posture/Palpation/Skin Start: 08/26/23 10:05 Freq: Status: Active Protocol: Document 08/27/23 13:[address] [facility] (Rec: 08/28/23 08:[address] [facility] [id number]) Posture Evaluation Position Standing Ankle/Foot Posture (L) Pronated,(R) Pronated Foot Arch (L) Low Arch,(R) Low Arch PT-OP-K Range of Motion Start: 08/26/23 10:05 Freq: Status: Active Protocol: Document 08/27/23 13:[address] [facility] (Rec: 08/28/23 08:[address] [facility] [id number]) Hip Goniometric Range of Motion Hip Right Flexion w/Knee Flexed 115 Straight Leg Raise 60 Extension 5 Abduction 35 Internal Rotation 20 External Rotation 45 Left Flexion w/Knee Flexed 125 Straight Leg Raise 60 Extension 5 Abduction 35 Internal Rotation 25 External Rotation 55 Hip ROM Limitations Hip ROM Limitations Soft Tissue Tightness Knee Goniometric Range of Motion Knee vicente Knee ROM WFL Yes Ankle and Foot Goniometric Range of Motion Ankle and Foot vicente Ankle/Foot ROM WFL Yes PT-OP-L Special Tests Start: 08/26/23 10:05 Freq: Status: Active Protocol: Document 08/27/23 13:[address] [facility] (Rec: 08/28/23 08:[address] [facility] [id number]) Special Tests Hip Special Tests Luis Armando Test Results neg Scour Test Test Results neg PT-OP-M Strength Start: 08/26/23 10:05 Freq: Status: Active Protocol: Document 08/27/23 13:[address] [facility] (Rec: 08/28/23 08:[address] [facility] [id number]) Hip Strength Hip Manual Muscle Testing Right Flexion (L2) 4 Good Extension (S1) 4 Good Abduction 4- Good- External Rotation 4- Good- Internal Rotation 4 Good Left Flexion (L2) 4 Good Extension (S1) 4 Good Abduction 4- Good- External Rotation 4- Good- Internal Rotation 4 Good Knee Strength Knee Manual Muscle Testing Right Flexion (S2) 5 Normal Extension (L3) 5 Normal Left Flexion (S2) 4+ Good+ Extension (L3) 4+ Good+ Ankle/Foot Strength Ankle and Foot Manual Muscle Testing vicente Dorsiflexion (L4) 4+ Good+ Plantarflexion (S1) 4+ Good+ PT-OP-Q Treatments Start: 08/26/23 10:05 Freq: Status: Active Protocol: Document 02/26/24 15:[address] [facility] (Rec: 02/26/24 16:[address] [facility] [id number]) Self-Care/Home Management Treatment Education Patient Education Home Exercise Program,Pain Management Other Education Discussed different recommendations for health equipment that may be beneficial for patient to purchase with his insurance benefit and shown options: TENS, foam roller, massage gun , resistance bands, topical cream such as Voltaren or Casaicin cr, massage stick, gel ice pack PT-OP-R Modalities Start: 08/26/23 10:05 Freq: Status: Active Protocol: Document 02/26/24 15:[address] [facility] (Rec: 02/26/24 16:[address] [facility] [id number]) Electric Stimulation Electric Stimulation Interferential Current (IFC) Body Location right hip Intensity 32 Target/Sweep Sweep Patient Position Sitting Comments no heat or cold today; advised with TENS can use either. PT-OP-T Assessment and Plan Start: 08/26/23 10:05 Freq: Status: Active Protocol: Document 02/26/24 15:[address] [facility] (Rec: 02/26/24 16:[address] [facility] [id number]) Physical Therapy Assessment Goals Two Impairment muscle imbalances throughout hips Impairment muscle tightness and weakness throughout hips vicente Short Term Goal (STG) Patient will be instructed in HEP to address ROM and strength deficits vicente hips 10/24/23: goal met STG Duration goal met Skilled Nursing Goal (LTG) Patient to demonstrate vicente hip ROM WNL and strength 5/5 all muscle groups to improve bilateral hip function. 11/14/23: good goal progress, not fully achieved 12/18/23: met except hip extension 4-/5 with poor functional gluteal activation. 01/22/24: hip extension remains 4-/5 LTG Duration 03/23/24 One Impairment poor sleep due to vicente hip pain Impairment unable to sleep greater than 45 min at a time before pain wakes him Short Term Goal (STG) Patient able to sleep for at least 3 hours without being woken due to pain 10/24/23: some goal progress 11/14/23: goal met 12/18/23: patient reporting only 2 hr nolvia on left side, 1 hr nolvia right side. PT reviewed need for long pillow support top leg, need inc cusion in bed. STG Duration 02/21/24 Skilled Nursing Goal (LTG) Patient will be able to return to normal sleeping pattern without being woken due to pain in hips LTG Duration 03/23/24 Assessment Summary Assessment Patient reporting feels injections have worn off or possibly inc pain again due to gardening. Continues with HEP, use of rolling pin for massage. Interested in what equipment PT would recommend for self management in the home as with new insurance he has money to purchase items; discussed as listed above with patient demonstrating good understanding of benefits. Trial IFES today due to discussion possible benefits of TENS. Patient to look at obtaining equipment, f/u with PT in 3-4 weeks. Physical Therapy Plan Frequency and Duration Frequency of Treatment 2 Duration of treatment (weeks) 8 Plan of Care Start Date 01/22/24 Plan of Care End Date 03/23/24 Therapeutic Interventions Therapeutic Interventions Home Exercise Program,Manual Therapy,Neuromuscular Re- education,Patient/Caregiver Education,Self-Care/Home Management,Soft Tissue Mobilization,Taping, Therapeutic Activities, Therapeutic Exercises Modalities Cold Pack/Ice Massage,Electric Stimulation,Hot Packs, Infrared Therapy,Traction- Mechanical,Ultrasound Next Visit Focus/Plan Next Note Type Treatment Note Next Visit Plan Discuss response to IFES and any obtained equipment as noted above, Trial single leg lift, work further on functional glueal activation. Review HEP, progress as indicated.
--- NOTE | 2024-04-15 14:39 | PT.OTRE ---
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 exposure Hypertriglyceridemia Insomnia Irritable bowel syndrome Left inguinal hernia Low HDL (under 40) Measles Migraines Mumps Nocturia Pelvic somatic dysfunction PTSD (post-traumatic stress disorder) Sacral region somatic dysfunction Shoulder pain Sleep apnea Tinnitus Wears glasses Surgical History (Last Reviewed 10/09/22 @ 21:39 by Reddy Martines DO) Anesthesia History of appendectomy (~2003) History of carpal tunnel release (~2013) History of knee surgery (~1974) History of lumbar spinal fusion (~1967) History of shoulder surgery (~2017) Knee cap dislocation (~1983) Trigger thumb (~2016) Visit Care Team Role Provider Type Parviz Chicas DO Family Provider Physician Primary Care Provider Specialty: Family Practice Address: [address] [place] [address], [id number] Email: Kindra Guo PA-C Attending Provider Advanced [employer] Referring Provider Specialty: Medical Wound Care Address: [address] [place] [address], [id number] Email: [email or web address] Physical Therapy Re-Evaluation PT-OP-A Visit Information Start: 08/26/23 10:05 Freq: Status: Active Protocol: Document 04/15/24 09:46 [facility] (Rec: 04/15/24 10:31 [facility] [id number]) Out-Patient Physical Therapy Visit Information Visit Information Visit Type Treatment Note Visit Start Time 09:45 Visit Stop Time 10:31 Visit Number 13 Evaluation Information Evaluation Date 08/27/23 Precautions Precautions spinal fusion 1967, left knee MCL repair 1974, left patellar dislocation release 1983, right shoulder labral repair 2013 PT-OP-B Current Condition Start: 08/26/23 10:05 Freq: Status: Active Protocol: Document 04/15/24 09:46 [facility] (Rec: 04/15/24 10:31 [facility] [id number]) Current Condition History of Current Condition Onset Date 2 years Current Complaints bilateral hip pain History of Current Condition about 2 year history bilateral hip pain, has been murder the past 6 months. Pain worst when in bed laying on side; can only tolerate 45 min laying on side. Has to get up for about 1 hour. Had three medical appointments cancelled with physician, finally got in to get prescription for PT. Can't sleep on his back due to acid reflux and sleep apnea. Does put a pillow in between knees at night. Has a mattress topper. Getting hip injections September 04. History spinal fusion. Does core exercises on regular basis. Went to PT 10 years ago, was given core exercises, hasn't ever done hip exercises. Prior Treatments and Tests x-ray: mod OA vicente hips Prior 2 surgeries left knee Future Testing and Treatments Planned none planned. PT-OP-C Subjective Start: 08/26/23 10:05 Freq: Status: Active Protocol: Document 04/15/24 09:46 [facility] (Rec: 04/15/24 10:31 [facility] [id number]) OP-PT Subjective Patient Comments Patient Comments States has been busy with family emergency. Missed last appointment, was having a lot of pain, finally got to sleep and slept in past appointment time. Right after that got cortisone shots, pain much better. Can't do another shot until June. Would like to schedule another appointment in about 2 months for consult. Still haven't gotten memory foam yet as planned to do cut out for hip PT-OP-F Manual Assessment Start: 08/26/23 10:05 Freq: Status: Active Protocol: Document 08/27/23 13:02 [facility] (Rec: 08/28/23 08:33 [facility] [id number]) Manual Assessments Soft Tissue Assessment Soft Tissue Mobility Assessment palpable tightness vicente TFL, piriformis right greater than left PT-OP-H Neuro Start: 08/26/23 10:05 Freq: Status: Active Protocol: Document 08/27/23 13:02 [facility] (Rec: 08/28/23 08:33 [facility] [id number]) Sensation Evaluation Gross Sensation Gross Sensation WNL Deep Tendon Reflex & Clonus Assessment Deep Tendon Reflex Bilateral Patellar Deep Tendon Reflex 2+ Normal PT-OP-J Posture/Palpation/Skin Start: 08/26/23 10:05 Freq: Status: Active Protocol: Document 08/27/23 13:02 [facility] (Rec: 08/28/23 08:33 [facility] [id number]) Posture Evaluation Position Standing Ankle/Foot Posture (L) Pronated,(R) Pronated Foot Arch (L) Low Arch,(R) Low Arch PT-OP-K Range of Motion Start: 08/26/23 10:05 Freq: Status: Active Protocol: Document 08/27/23 13:02 [facility] (Rec: 08/28/23 08:33 [facility] [id number]) Hip Goniometric Range of Motion Hip Measured in Degrees Right Flexion w/Knee Flexed 115 Straight Leg Raise 60 Extension 5 Abduction 35 Internal Rotation 20 External Rotation 45 Left Flexion w/Knee Flexed 125 Straight Leg Raise 60 Extension 5 Abduction 35 Internal Rotation 25 External Rotation 55 Hip ROM Limitations Hip ROM Limitations Soft Tissue Tightness Knee Goniometric Range of Motion Knee Measured in Degrees vicente Knee ROM WFL Yes Ankle and Foot Goniometric Range of Motion Ankle and Foot Measured in Degrees vicente Ankle/Foot ROM WFL Yes PT-OP-L Special Tests Start: 08/26/23 10:05 Freq: Status: Active Protocol: Document 08/27/23 13:02 [facility] (Rec: 08/28/23 08:33 [facility] [id number]) Special Tests Hip Special Tests Luis Armando Test Results neg Scour Test Test Results neg PT-OP-M Strength Start: 08/26/23 10:05 Freq: Status: Active Protocol: Document 08/27/23 13:02 [facility] (Rec: 08/28/23 08:33 [facility] [id number]) Hip Strength Hip Manual Muscle Testing Right Flexion (L2) 4 Good Extension (S1) 4 Good Abduction 4- Good- External Rotation 4- Good- Internal Rotation 4 Good Left Flexion (L2) 4 Good Extension (S1) 4 Good Abduction 4- Good- External Rotation 4- Good- Internal Rotation 4 Good Knee Strength Knee Manual Muscle Testing Right Flexion (S2) 5 Normal Extension (L3) 5 Normal Left Flexion (S2) 4+ Good+ Extension (L3) 4+ Good+ Ankle/Foot Strength Ankle and Foot Manual Muscle Testing vicente Dorsiflexion (L4) 4+ Good+ Plantarflexion (S1) 4+ Good+ PT-OP-Q Treatments Start: 08/26/23 10:05 Freq: Status: Active Protocol: Document 04/15/24 09:46 [facility] (Rec: 04/15/24 10:31 [facility] [id number]) Therapeutic Exercises Supine Exercises SLR Equipment Used 1# Reps/Minutes 10x Comments added to HEP Sidelying Exercises abd Equipment Used 1#, 2# Reps/Minutes 10x Standing Exercises single leg lift Reps/Minutes 5x Comments poor alignment, unable to fully self correct even with cues. Not added to Self-Care/Home Management Treatment Education Other Education further discussio of exercise and pain control products with PT recommendations, patient to go home today and get approval from insurance for obtaining. Requests follow up in 2 months. PT-OP-R Modalities Start: 08/26/23 10:05 Freq: Status: Active Protocol: Document 02/26/24 15:17 [facility] (Rec: 02/26/24 16:24 [facility] [id number]) Electric Stimulation Electric Stimulation Interferential Current (IFC) Body Location right hip Intensity 32 Target/Sweep Sweep Patient Position Sitting Comments no heat or cold today; advised with TENS can use either. PT-OP-T Assessment and Plan Start: 08/26/23 10:05 Freq: Status: Active Protocol: Document 04/15/24 09:46 [facility] (Rec: 04/15/24 10:31 [facility] [id number]) Physical Therapy Assessment Impairments Impairments Activity Tolerance,Pain,ROM, Strength Goals Three Impairment lacking self management tools for HEP and pain management Short Term Goal (STG) patient to be instructed in HEP and exercise and pain management equipment for home set up and self management for fci fitness and pain management. STG Duration 05/16/24 [employer] Goal (LTG) Patient to be independent and compliant with use of all equipment he is planning to obtain including TENS, exercise tubing, massage gun. LTG Duration 06/23/24 Two Impairment muscle imbalances throughout hips Impairment muscle tightness and weakness throughout hips vicente Short Term Goal (STG) Patient will be instructed in HEP to address ROM and strength deficits vicente hips 10/24/23: goal met STG Duration goal met [facility] Goal (LTG) Patient to demonstrate vicente hip ROM WNL and strength 5/5 all muscle groups to improve bilateral hip function. 11/14/23: good goal progress, not fully achieved 12/18/23: met except hip extension 4-/5 with poor functional gluteal activation. 01/22/24: hip extension remains 4-/5 04/15/24: hip extension 4 LTG Duration goal met One Impairment poor sleep due to vicente hip pain Impairment unable to sleep greater than 45 min at a time before pain wakes him Short Term Goal (STG) Patient able to sleep for at least 3 hours without being woken due to pain 10/24/23: some goal progress 11/14/23: goal met 12/18/23: patient reporting only 2 hr nolvia on left side, 1 hr nolvia right side. PT reviewed need for long pillow support top leg, need inc cusion in bed. STG Duration goal met [employer] Goal (LTG) Patient will be able to return to normal sleeping pattern without being woken due to pain in hips 04/15/24 LTG Duration goal met Assessment Summary Assessment Pain decreased since second round of injections. Patient unable to be compliant to HEP or obtain discussed equipment for pain management and HEP as recommended due to family emergency. Recommend up to 3 more visits to assure safety and independence with HEP and exercise and pain mangement equipment as above. Physical Therapy Plan Frequency and Duration Frequency of Treatment 3 visits Duration of treatment (weeks) 12 Plan of Care Start Date 03/23/24 Plan of Care End Date 06/23/24 Therapeutic Interventions Therapeutic Interventions Home Exercise Program,Manual Therapy,Neuromuscular Re- education,Patient/Caregiver Education,Self-Care/Home Management,Soft Tissue Mobilization,Taping, Therapeutic Activities, Therapeutic Exercises Modalities Cold Pack/Ice Massage,Electric Stimulation,Hot Packs, Infrared Therapy,Traction- Mechanical,Ultrasound Next Visit Focus/Plan Next Note Type Treatment Note Next Visit Plan Discuss response to TENS and any other obtained equipment as discussed, Trial single leg lift, work further on functional glueal activation. Review HEP, progress as indicated.
--- NOTE | 2024-04-15 14:39 | PT.OPPOC ---
Physical, Occupational & Speech Therapy At [facility] Current Diagnoses Bilateral primary osteoarthritis of hip (04/15/24) Visit Care Team Role Provider Type Parviz Chicas DO Family Provider Physician Primary Care Provider Specialty: Family Practice Address: [address] [place] [address], [id number] Email: Kindra Guo PA-C Attending Provider Advanced Volunteer Coordinator Referring Provider Specialty: Medical Wound Care Address: [address] [place] [address], [id number] Email: [email or web address] Plan Of Care PT-OP-T Assessment and Plan Start: 08/26/23 10:05 Freq: Status: Active Protocol: Document 04/15/24 09:46 [facility] (Rec: 04/15/24 10:31 [facility] [id number]) Physical Therapy Assessment Impairments Impairments Activity Tolerance,Pain,ROM, Strength Goals Three Impairment lacking self management tools for HEP and pain management Short Term Goal (STG) patient to be instructed in HEP and exercise and pain management equipment for home set up and self management for retirement fitness and pain management. STG Duration 05/16/24 Pre Billing Clinician Goal (LTG) Patient to be independent and compliant with use of all equipment he is planning to obtain including TENS, exercise tubing, massage gun. LTG Duration 06/23/24 Two Impairment muscle imbalances throughout hips Impairment muscle tightness and weakness throughout hips vicente Short Term Goal (STG) Patient will be instructed in HEP to address ROM and strength deficits vicente hips 10/24/23: goal met STG Duration goal met Pre Billing Clinician Goal (LTG) Patient to demonstrate vicente hip ROM WNL and strength 5/5 all muscle groups to improve bilateral hip function. 11/14/23: good goal progress, not fully achieved 12/18/23: met except hip extension 4-/5 with poor functional gluteal activation. 01/22/24: hip extension remains 4-/5 04/15/24: hip extension 4 LTG Duration goal met One Impairment poor sleep due to vicente hip pain Impairment unable to sleep greater than 45 min at a time before pain wakes him Short Term Goal (STG) Patient able to sleep for at least 3 hours without being woken due to pain 10/24/23: some goal progress 11/14/23: goal met 12/18/23: patient reporting only 2 hr nolvia on left side, 1 hr nolvia right side. PT reviewed need for long pillow support top leg, need inc cusion in bed. STG Duration goal met Custodial Goal (LTG) Patient will be able to return to normal sleeping pattern without being woken due to pain in hips 04/15/24 LTG Duration goal met Assessment Summary Assessment Pain decreased since second round of injections. Patient unable to be compliant to HEP or obtain discussed equipment for pain management and HEP as recommended due to family emergency. Recommend up to 3 more visits to assure safety and independence with HEP and exercise and pain mangement equipment as above. Physical Therapy Plan Frequency and Duration Frequency of Treatment 3 visits Duration of treatment (weeks) 12 Plan of Care Start Date 03/23/24 Plan of Care End Date 06/23/24 Therapeutic Interventions Therapeutic Interventions Home Exercise Program,Manual Therapy,Neuromuscular Re- education,Patient/Caregiver Education,Self-Care/Home Management,Soft Tissue Mobilization,Taping, Therapeutic Activities, Therapeutic Exercises Modalities Cold Pack/Ice Massage,Electric Stimulation,Hot Packs, Infrared Therapy,Traction- Mechanical,Ultrasound Next Visit Focus/Plan Next Note Type Treatment Note Next Visit Plan Discuss response to TENS and any other obtained equipment as discussed, Trial single leg lift, work further on functional glueal activation. Review HEP, progress as indicated. Plan of Care Dates Plan of Care Start Date 03/23/24 Plan of Care End Date 06/23/24 Electronically Signed by: Jovita Hodges, PT 04/15/24 0119 If you are in agreement with this Plan of Care, please return a signed and dated copy. I have reviewed this Plan of Care and certify that the skilled therapy services above are required to meet the patient?s needs. Physician Signature Date Printed Name and Credentials Clinical Instructor Signature Printed Name and Credentials
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
== END 2024-06-16 14:43 | disposition home or self-care (01) ==
LOC: PHYS 09:45
PROVIDERS: Family Provider Family Medicine; PCP Family Medicine; Referring Provider Physician Assistant; Visit Provider Physician Assistant
DX: M16.0 Bilateral primary osteoarthritis of hip (principal)
CPT/HCPCS: 97032; 97110; 97112; 97140; 97162; 97535

== ENCOUNTER → 2024-08-26 08:03 | Outpatient (CLI) | payer MEDICARE, SELFPAY ==
[2024-08-26 09:17] LABS: Add Manual Diff / Slide Review NO; Basophils Absolute Auto 0 /uL (0-100); Basophils Percent Auto 0.6 % (0-2); Eosinophils Absolute Auto 100 /uL (0-450); Eosinophils Percent Auto 2.8 % (2-4); Hematocrit 40.7 % (41-53); Hemoglobin 14.2 g/dL (13.5-17.5); Lymphocytes Absolute Auto 1800 /uL (1100-4500); Lymphocytes Percent Auto 40.6 % (25-40); Mean Corpuscular HGB Conc 34.8 % (30-36); Mean Corpuscular Hemoglobin 35.5 PG (26-34); Mean Corpuscular Volume 101.9 fL (80-100); Monocytes Absolute Auto 700 /uL (0-900); Monocytes Percent Auto 15.4 % (3-14); Neutrophils Absolute Auto 1800 /uL (1500-7000); Neutrophils Percent Auto 40.6 % (50-75); Platelet Count 204 X10^3/uL (150-400); White Blood Cell Count 4.5 X10^3/uL (4.5-11.0)
[2024-08-26 09:36] LABS: Cholesterol 141 mg/dL (140-199); HDL Cholesterol 27 mg/dL (40-60); LDL Cholesterol Calculated 96 mg/dL (<100); Triglycerides 88 mg/dL (35-150)
[2024-08-26 09:43] LABS: High Sensitivity CRP - Cardiac < 0.3 mg/L (1.0-3.0)
[2024-08-26 10:48] LABS: Folate > 20.0 ng/mL (2.76-20.0); Vitamin B12 707 pg/mL (239-931)
== END ==
PROVIDERS: Family Provider Family Medicine; PCP Family Medicine; Referring Provider Family Medicine; Visit Provider Family Medicine
DX: D53.9 Nutritional anemia, unspecified (principal); E78.1 Pure hyperglyceridemia
CPT/HCPCS: 36415; 80061; 82172; 82607; 82746; 85025; 86140

== ENCOUNTER → 2025-08-09 08:30 | Outpatient (CLI) | payer MEDICARE, SELFPAY ==
[2025-08-09 09:25] LABS: Add Manual Diff / Slide Review NO; Hematocrit 40.2 % (41-53); Hemoglobin 13.7 g/dL (13.5-17.5); Lymphocytes Absolute Auto 2200 /uL (1100-4500); Mean Corpuscular HGB Conc 34.1 % (30-36); Mean Corpuscular Hemoglobin 34.6 PG (26-34); Mean Corpuscular Volume 101.2 fL (80-100); Platelet Count 174 X10^3/uL (150-400)
[2025-08-09 09:53] LABS: Alanine Aminotransferase 28 IU/L (<50); Albumin 4.1 g/dL (3.5-5.0); Albumin Globulin Ratio 0.7 (1.0-2.8); Alkaline Phosphatase 41 U/L (38-126); Blood Urea Nitrogen 20 mg/dL (9-20); Calcium 9.9 mg/dL (8.4-10.2); Carbon Dioxide 28 mmol/L (22-32); Chloride 105 mmol/L (98-107); Cholesterol 137 mg/dL (140-199); Estimated Glomerular Filt Rate > 60 mL/min (>60); Globulin 5.7 g/dL (1.7-4.1); Glucose 104 mg/dL (70-99); HDL Cholesterol 33 mg/dL (40-60); HEMOLYSIS < 15 (0-50); Potassium 4.2 mmol/L (3.4-5.1); Sodium 143 mmol/L (137-145); Total Protein 9.8 g/dL (6.3-8.2); Triglycerides 68 mg/dL (35-150)
[2025-08-10 03:12] LABS: CRP, High Sensitivity 1.02 mg/L (0.00-3.00)
== END ==
PROVIDERS: PCP Family Medicine; Referring Provider Family Medicine; Visit Provider Family Medicine
DX: Z00.01 Encounter for general adult medical examination with abnormal findings (principal); Z12.5 Encounter for screening for malignant neoplasm of prostate; E78.1 Pure hyperglyceridemia; M15.0 Primary generalized (osteo)arthritis
CPT/HCPCS: 36415; 80053; 80061; 85025; 86140; G0103

== ENCOUNTER 2025-08-16 10:18 | Emergency (ER) | payer MEDICARE, SELFPAY ==
[2025-08-16] VITALS (11 sets, daily range): BP systolic 102–126; BP diastolic 66–88; PULSE 64–103; RESP 12–21; TEMP 36.6; O2SAT 91–99; BMI 22.4
--- NOTE | 2025-08-16 10:30 | DI.RAD.S_ITS ---
PROCEDURE: XR CHEST 1V INDICATIONS: Chest Pain TECHNIQUE: One view of the chest was acquired. COMPARISON: [facility], CR, XR CHEST 1V, 10/09/2022, 19:23. FINDINGS: Surgical changes and devices: None. Lungs and pleura: Lungs are clear. No pleural effusions or pneumothorax. Mediastinum: Mediastinal contours appear normal. Heart size is normal. Bones and chest wall: No suspicious bony lesions. Overlying soft tissues appear unremarkable. IMPRESSION: No acute cardiopulmonary abnormality is seen. Dictated by: Jasen Barker M.D. on 08/16/2025 at 10:41 Approved by: Jasen Barker M.D. on 08/16/2025 at 10:41
--- NOTE | 2025-08-16 10:30 | EKG_ITS ---
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
[2025-08-16 10:36] LABS: Add Manual Diff / Slide Review NO; Hematocrit 40.9 % (41-53); Hemoglobin 14.1 g/dL (13.5-17.5); Lymphocytes Absolute Auto 1500 /uL (1100-4500); Mean Corpuscular HGB Conc 34.5 % (30-36); Mean Corpuscular Hemoglobin 35.0 PG (26-34); Mean Corpuscular Volume 101.3 fL (80-100); Platelet Count 189 X10^3/uL (150-400)
--- NOTE | 2025-08-16 10:52 | ED.ARRPALP ---
HPI - Arrhythmia/Palpitations General Chief Complaint: Arrhythmia/Palpitations Stated Complaint: IN AFIB 4 days Time Seen by Provider: 08/16/25 10:25 Source: patient Mode of arrival: Ambulatory History of Present Illness HPI narrative: Patient here for asymptomatic atrial fibrillation. Patient primary care Dr. Liza sinha office called patient this morning to come in for new finding. Patient went to laboratory preop last Saturday for left knee surgery to be done September 07. EKG was done on that day, last rosalba and shown to be in atrial fibrillation. He was informed to come to the emergency department. He called his primary care office on Saturday. They called him back today to go to the emergency department. He has no symptoms. No chest pain no palpitations no shortness of breath. No prior history of heart attack strokes or diabetes with him. EKG completed, atrial fibrillation rate 85. Related Data Home Medications ?Medication ?Instructions ?Recorded ?Confirmed cholecalciferol (vitamin D3) 50 50 mcg PO DAILY 11/22/23 08/17/25 mcg (2,000 unit) capsule mecobalamin (vitamin B12) 1,000 1,000 mcg PO DAILY 11/22/23 08/17/25 mcg chewable tablet swljogmgzkkw-dnv-bbooo acid-vit 1 tab PO DAILY 11/22/23 08/17/25 K-lycop 400 mcg-20 mcg-370 mcg tablet (Men's 50 Plus Multivitamin) omega 3 fish oil 950 - 1,400 mg PO .2 daily 11/22/23 08/17/25 iron 18 mg tablet 18 mg PO .every other day 08/12/25 08/17/25 Previous Rx's ?Medication ?Instructions ?Recorded Muscle Roll Device #1 ea 05/19/24 leg brace (Knee Support Brace) #1 ea 05/19/24 paroxetine HCl 10 mg tablet 10 mg PO DAILY #100 tabs 08/12/25 aspirin 81 mg tablet 81 mg PO DAILY #30 tabs 08/16/25 metoprolol tartrate 25 mg tablet 12.5 mg (1/2 x 25 mg) PO PRN PRN 08/16/25 Palpitations/atrial fibrillation #30 tabs Allergies Allergy/AdvReac Type Severity Reaction Status Date / Time No Known Drug Allergies Allergy Verified 08/17/25 08:01 Review of Systems Review of Systems Narrative: GENERAL: Negative chills, fatigue, malaise, fever, sweats. 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 Hair loss Family history of diabetes mellitus in son Bilateral lower extremity edema Hypertriglyceridemia History of gastric ulcer Bilateral hip pain Sacral region somatic dysfunction Pelvic somatic dysfunction Low HDL (under 40) History of hyperlipidemia Insomnia Nocturia Wears glasses Hearing loss Sleep apnea PTSD (post-traumatic stress disorder) Depression Anxiety Migraines Shoulder pain Chronic back pain Mumps Measles Tinnitus Cataracts, bilateral Irritable bowel syndrome GERD (gastroesophageal reflux disease) Left inguinal hernia Surgical History Anesthesia History of shoulder surgery (~2017) Trigger thumb (~2016) History of carpal tunnel release (~2013) History of appendectomy (~2003) Knee cap dislocation (~1983) History of knee surgery (~1974) History of lumbar spinal fusion (~1967) Family History Mother Sepsis Grandfather History of heart disease Smoking Status: Never smoker alcohol intake frequency: holidays/special occasions only Exam Narrative Exam Narrative: GENERAL: in no distress, not toxic not dyspneic HEAD: Normocephalic. EYES: Pupils equal round ENT: Mucous membranes moist. NECK: Trachea midline. CARDIOVASCULAR: Irregularly irregular RESPIRATORY: Clear to auscultation. Breath sounds equal bilaterally. No wheezes, rales, or rhonchi. GASTROINTESTINAL: Abdomen soft, non-tender BACK: No flank tenderness. EXTREMITIES: No gross deformities. NEURO: AOx4. Clear speech SKIN: Warm and dry PSYCH: Not anxious, is cooperative Initial Vital Signs Initial Vital Signs: Vital Signs Temperature 98 F 08/16/25 10:28 Pulse Rate 83 08/16/25 10:28 Respiratory Rate 12 08/16/25 10:28 Blood Pressure 118/66 08/16/25 10:28 Pulse Oximetry 96 08/16/25 10:28 Oxygen Delivery Method Room Air 08/16/25 10:28 Course Orders Ordered: Discontinued Medications Aspirin (Aspirin 81 Mg Chew Tab) 324 mg PO NOW ONE Stop: 08/16/25 10:31 Last Admin: 08/16/25 12:32 Dose: Not Given Documented By: [facility] Vital Signs Vital signs: Vital Signs - 8 hr 08/16/25 10:28 08/16/25 10:40 08/16/25 10:45 Temperature 98 F Pulse Rate 83 91 H Respiratory Rate 12 21 Blood Pressure 118/66 108/77 Pulse Oximetry 96 98 Oxygen Delivery Method Room Air 08/16/25 10:45 08/16/25 11:00 08/16/25 11:00 Temperature Pulse Rate 84 90 Respiratory Rate 21 19 Blood Pressure 105/75 Pulse Oximetry 97 99 Oxygen Delivery Method 08/16/25 11:17 08/16/25 11:17 08/16/25 11:30 Temperature Pulse Rate 90 Respiratory Rate 21 Blood Pressure 126/85 104/66 Pulse Oximetry 98 Oxygen Delivery Method 08/16/25 11:30 08/16/25 11:45 08/16/25 11:45 Temperature Pulse Rate 78 79 Respiratory Rate 15 21 Blood Pressure 111/73 Pulse Oximetry 96 96 Oxygen Delivery Method 08/16/25 12:00 08/16/25 12:01 08/16/25 12:01 Temperature Pulse Rate 64 103 H Respiratory Rate 18 20 Blood Pressure 124/88 Pulse Oximetry 91 92 Oxygen Delivery Method 08/16/25 12:15 08/16/25 12:15 Temperature Pulse Rate 75 Respiratory Rate 17 Blood Pressure 102/66 Pulse Oximetry 95 Oxygen Delivery Method MDM - Arrhythmia/Palpitations Lab Data 08/16/25 10:30 08/16/25 10:30 Labs: Lab Results 08/16/25 Range/Units 10:30 WBC 4.2 L (4.5-11.0) X10^3/uL RBC 4.04 L (4.5-5.9) X10^6/uL Hgb 14.1 (13.5-17.5) g/dL Hct 40.9 L (41-53) % MCV 101.3 H (80-100) fL MCH 35.0 H (26-34) PG MCHC 34.5 (30-36) % RDW 13.6 (11.6-14.8) % Plt Count 189 (150-400) X10^3/uL Neut % (Auto) 44.9 L (50-75) % Lymph % (Auto) 36.6 (25-40) % [place] % (Auto) 16.5 H (3-14) % Eos % (Auto) 1.3 L (2-4) % Baso % (Auto) 0.7 (0-2) % Neut # (Auto) 1900 (6567-9588) /uL Lymph # (Auto) 1500 (3182-3702) /uL [place] # (Auto) 700 (0-900) /uL Eos # (Auto) 100 (0-450) /uL Baso # (Auto) 0 (0-100) /uL PT 12.1 (9.4-12.5) SECONDS INR 1.1 (0.9-1.3) APTT 33 (25.1-36.5) SECONDS Sodium 141 (137-145) mmol/L Potassium 4.0 (3.4-5.1) mmol/L Chloride 105 (98-107) mmol/L Carbon Dioxide 27 (22-32) mmol/L BUN 16 (9-20) mg/dL Creatinine 0.99 (0.66-1.25) mg/dL Estimated GFR > 60 (>60) mL/min BUN/Creatinine Ratio 16.2 (6-22) Glucose 87 (70-99) mg/dL Calcium 10.0 (8.4-10.2) mg/dL Magnesium 2.1 (1.6-2.3) mg/dL Total Bilirubin 0.6 (0.2-1.3) mg/dL AST 32 (17-59) IU/L ALT 25 (<50) IU/L Alkaline Phosphatase 39 (38-126) U/L Total Creatine Kinase 49 L (55-170) U/L Troponin I < 0.012 (0.01-0.034) ng/mL NT-Pro-B Natriuret Pep 995 H (<125) pg/mL Total Protein 10.7 H (6.3-8.2) g/dL Albumin 4.3 (3.5-5.0) g/dL Globulin 6.4 H (1.7-4.1) g/dL Albumin/Globulin Ratio 0.7 L (1.0-2.8) Lipase 179 (23-300) U/L TSH 0.378 L (0.47-4.68) uIU/mL Imaging Data Chest x-ray: Radiologist's Impresson: [address] [address] XRay Report Signed Patient: Kristian Mckeon MR#: [id number] : 1950 Acct:[id number] Age/Sex: 75 / M Date of Service: 08/16/25 Loc: ED Accession Number: [id number] Procedure: XR chest 1V Ordering Provider: Tang Reyes MD PROCEDURE: XR CHEST 1V INDICATIONS: Chest Pain TECHNIQUE: One view of the chest was acquired. COMPARISON: [facility], , XR CHEST 1V, 10/09/2022, 19:23. FINDINGS: Surgical changes and devices: None. Lungs and pleura: Lungs are clear. No pleural effusions or pneumothorax. Mediastinum: Mediastinal contours appear normal. Heart size is normal. Bones and chest wall: No suspicious bony lesions. Overlying soft tissues appear unremarkable. IMPRESSION: No acute cardiopulmonary abnormality is seen. Dictated by: Jasen Barker M.D. on 08/16/2025 at 10:41 Approved by: Jasen Barker M.D. on 08/16/2025 at 10:41 [facility] Narrative Medical decision making narrative: Patient here for asymptomatic atrial fibrillation. Patient primary care Dr. Liza sinha office called patient this morning to come in for new finding. Patient went to laboratory preop last Saturday for left knee surgery to be done September 07. EKG was done on that day, last rosalba and shown to be in atrial fibrillation. He was informed to come to the emergency department. He called his primary care office on Saturday. They called him back today to go to the emergency department. He has no symptoms. No chest pain no palpitations no shortness of breath. No prior history of heart attack strokes or diabetes with him. EKG completed, atrial fibrillation rate 85. MDM After history and exam, CBC CMP PT INR PTT EKG troponin TSH magnesium chest x-ray Differential considered: Includes but not limited to asymptomatic atrial fibrillation Medical records reviewed: No recent visit for this complaint Lab Test results independently reviewed as above. Pertinent findings: WBC 4.2 hemoglobin 14 hematocrit 40.9 platelets 189 INR 1.1 sodium 141 potassium 4.0 calcium 10.0 troponin less than 0.012 BNP 995 TSH 0.378 Independently reviewed EKG atrial fibrillation rate 85 right bundle branch block Imaging studies independently reviewed: Chest x-ray no acute finding Consultations: 11:07 a.m.. I spoke with Cardiology, dr palacios, patient does not need to be admitted or transferred. Patient can follow up with him for outpatient echocardiogram and stress test. Give patient aspirin 81 mg daily and metoprolol tartrate 25 mg by mouth as needed for atrial fibrillation. No Eliquis at this time. Re-evaluations: 12:25 p.m.. Patient has been up and walking in the [place] to the bathroom without difficulty or ataxia or dizziness. Patient asymptomatic with atrial fibrillation. Reviewed with patient findings and my discussion with cardiology services. He agrees with treatment plan for outpatient stress test echocardiogram. I will prescribe him aspirin 81 mg daily and metoprolol as needed for atrial fibrillation with return precautions. He desires discharge home Discussion: Appropriate for discharge home. Patient has asymptomatic atrial fibrillation. Rate is controlled. Cardiology Services contacted and recommendations reviewed with patient and he agrees. He desires discharge home. Diagnosis: New onset atrial fibrillation Discharge Plan Departure Patient Disposition: Home Clinical Impression: Atrial fibrillation, new onset Instructions: DI for Atrial Fibrillation Activity Restrictions/Additional Instructions: Your exam and laboratory studies are reassuring. Cardiology services was contacted and needs to call them today to set up appointment for stress test and echocardiogram of the heart. Prescriptions for baby aspirin provided as well as metoprolol, you should take the metoprolol if you feel like your having irregular heartbeat and need to go to the emergency department. Please call provided janitor and cleaner today for appointment time. Return if worse if any questions or concerns. Prescriptions: New aspirin 81 mg tablet 81 mg PO DAILY Qty: 30 0RF metoprolol tartrate 25 mg tablet 12.5 mg PO PRN PRN (Reason: Palpitations/atrial fibrillation) Qty: 30 0RF No Action Men's 50 Plus Multivitamin 400-20-370 mcg tablet 1 tab PO DAILY omega 3 fish oil 950 - 1,400 mg PO .2 daily cholecalciferol (vitamin D3) 50 mcg (2,000 unit) capsule 50 mcg PO DAILY mecobalamin (vitamin B12) 1,000 mcg tablet,chewable 1,000 mcg PO DAILY Rx Instructions: this is an oral tablet, not a chewable tablet (DME) Knee Support Brace Misc See Rx Instructions .Route Qty: 1 0RF Rx Instructions: As directed to support [place] (DME) Muscle Roll Device See Rx Instructions .Route .MEDSUPPLY Qty: 1 0RF Rx Instructions: Use to roll and stretch affected areas PRN for pain and cramping iron 18 mg tablet 18 mg PO .every other day paroxetine HCl 10 mg tablet 10 mg PO DAILY Qty: 100 3RF Referrals: Rio Iverson MD [Physician, Cardiology] Holly Sinha DO [Primary Care Provider, Medical] Stand Alone Forms: Patient Portal/API
[2025-08-16 10:54] LABS: INR 1.1 (0.9-1.3); Prothrombin Time 12.1 SECONDS (9.4-12.5)
[2025-08-16 10:56] LABS: Alanine Aminotransferase 25 IU/L (<50); Albumin 4.3 g/dL (3.5-5.0); Albumin Globulin Ratio 0.7 (1.0-2.8); Alkaline Phosphatase 39 U/L (38-126); Blood Urea Nitrogen 16 mg/dL (9-20); Calcium 10.0 mg/dL (8.4-10.2); Carbon Dioxide 27 mmol/L (22-32); Chloride 105 mmol/L (98-107); Creatine Kinase 49 U/L (55-170); Estimated Glomerular Filt Rate > 60 mL/min (>60); Globulin 6.4 g/dL (1.7-4.1); Glucose 87 mg/dL (70-99); HEMOLYSIS 23 (0-50); Lipase 179 U/L (23-300); Magnesium 2.1 mg/dL (1.6-2.3); Potassium 4.0 mmol/L (3.4-5.1); Sodium 141 mmol/L (137-145); Total Protein 10.7 g/dL (6.3-8.2)
[2025-08-16 10:57] LABS: PTT Partial Thromboplastin Tim 33 SECONDS (25.1-36.5)
[2025-08-16 11:08] LABS: NT-proBNP (BNP-Adult 18+) 995 pg/mL (<125); Troponin I < 0.012 ng/mL (0.01-0.034)
[2025-08-16 11:52] LABS: Thyroid Stimulating Hormone 0.378 uIU/mL (0.47-4.68)
--- NOTE | 2025-08-16 12:00 | PC.NURSE ---
Pt reports feeling extremely tired but no other complaints r/t abnormal heart rhythm. Pt denies any hx of A fib and does not take blood thinners.
== END 2025-08-16 12:41 | disposition home or self-care (01) ==
PROVIDERS: Emergency Provider Emergency Medicine; PCP Family Medicine
DX: I48.91 Unspecified atrial fibrillation (principal)
CPT/HCPCS: 36415; 71045; 80053; 82550; 83690; 83735; 83880; 84443; 84484; 85025; 85610; 85730; 93005; 99283; 99284